=== PATIENT | female | born 1990 | race Caucasian/White ===

== ENCOUNTER → 2018-07-20 18:02 | Outpatient (CLI) | payer MEDICAID, SELFPAY ==
[2018-07-20 18:05] LABS: Microscopic, Urine URINE MICROSCOPIC (MICROSCOPIC)
[2018-07-21 08:34] LABS: Appearance,Urine CLOUDY (Clear); Blood, Urine 2+ (Negative); Color,Urine RED (Yellow); Glucose,Urine (UA) 1+ (Negative); Ketones,Urine TRACE (Negative); Leukocyte Esterase,Urine 3+ (Negative); Nitrate,Urine POSITIVE (Negative); PH,Urine 6.5 (5.0-8.5); Protein,Urine 3+ (Negative); Urobilinogen,Urine >=8.0 EU/dl (0.2)
[2018-07-21 08:37] LABS: Bilirubin,Urine Negative (Negative)
[2018-07-21 08:59] LABS: Bacteria,Urine 1+ /lpf; Calcium Oxalate Crystals,Urine 2+ /lpf; Squamous Epithelial Cell,Urine Occasional #/hpf (0-5)
== END ==
PROVIDERS: Visit Provider Nurse Practitioner Family
DX: R30.0 Dysuria (principal)
CPT/HCPCS: 81001; 87086; 87088; 87186

== ENCOUNTER → 2021-10-02 07:23 | Outpatient (CLI) | payer SELFPAY | PROVIDERS: PCP Physician Assistant; Visit Provider Physician Assistant | DX: N39.0 Urinary tract infection, site not specified (principal) | CPT/HCPCS: 87086 ==

== ENCOUNTER → 2022-05-14 21:29 | Outpatient (CLI) | payer OTHER, SELFPAY | LOC: LAB 05-17 01:18 → LAB.DROPOF 05-22 08:17 | PROVIDERS: PCP Student in an Organized Health Care Education/Training Program; Visit Provider Student in an Organized Health Care Education/Training Program | DX: R68.89 Other general symptoms and signs (principal); J02.9 Acute pharyngitis, unspecified; R11.0 Nausea | CPT/HCPCS: 87070; C9803; U0003; U0005 ==

== ENCOUNTER → 2022-07-18 10:39 | Outpatient (CLI) | payer OTHER, SELFPAY ==
[2022-07-18 16:04] LABS: Basophils % 0.6 % (0.1-2.0); Eosinophils # 0.3 K/mm3 (0.0-0.4); Eosinophils % 4.8 % (0.1-12.0); Hematocrit 47.9 % (37.0-47.0); Lymphocytes # 2.1 K/mm3 (0.7-4.5); Lymphocytes % 33.2 % (10-50); Mean Corpuscular HGB Conc 31.3 g/dL (31.8-35.4); Mean Corpuscular Hemoglobin 29.9 pg (27.0-31.2); Mean Corpuscular Volume 95.6 fl (81-99); Mean Platelet Volume 8.6 fl (7.4-10.4); Monocytes # 0.5 K/mm3 (0.1-1.0); Monocytes % 8.4 % (1.7-9.3); Neutrophils # 3.4 K/mm3 (1.8-7.8); Neutrophils % 52.9 % (37.0-80.0); Platelet Count 327 K/mm3 (142-424); Red Blood Count 5.01 M/mm3 (4.20-5.40); Red Cell Distribution Width 13.1 % (11.5-17.5); White Blood Count 6.4 K/mm3 (4.8-10.8)
[2022-07-18 16:19] LABS: Alanine Aminotransferase 18 U/L (12-78); Albumin Level 4.6 g/dl (3.5-5.0); Albumin/Globulin Ratio 1.6 (1.1-1.8); Alkaline Phosphatase 101 U/L (38-126); Anion Gap 10.2 mEq/L (5-15); Aspartate Amino Transferase 18 U/L (14-36); Bilirubin,Total 0.5 mg/dl (0.2-1.3); Blood Urea Nitrogen 13 mg/dl (7-17); Calcium 9.2 mg/dl (8.4-10.2); Carbon Dioxide 27 mmol/L (22.0-30.0); Chloride 103 mmol/L (98-107); Chol/HDL Ratio 4.5 (1-3.5); Cholesterol 177 mg/dl (140-200); Estimated Glomerular Filt Rate 117 ml/min (>60); GFR (African American) 141 ML/MIN (>60); Globulin 2.8 g/dL (1.3-3.2); Glucose 80 mg/dl (74-100); HDL Cholesterol 39 mg/dl (40-60); Potassium 4.2 mmoL/L (3.5-5.1); Sodium 136 mmol/L (136-145); Total Protein,Serum 7.4 g/dl (6.3-8.2); Triglycerides 84 mg/dl (30-150); VLDL Cholesterol 17 mg/dL (0-40)
[2022-07-18 16:31] LABS: Direct LDL Cholesterol 127.98 mg/dL (100-129)
[2022-07-18 16:38] LABS: 25-OH Vitamin D, Total 39.5 ng/mL (30-100)
[2022-07-18 16:52] LABS: Thyroid Stimulating Hormone 0.16 uIU/mL (0.465-4.68)
[2022-07-18 17:31] LABS: Total Iron Binding Capacity 315 ug/dL (265-497)
[2022-07-18 17:35] LABS: Vitamin B12 608 pg/mL (239-931)
[2022-07-18 17:58] LABS: Ferritin 55.1 ng/ml (6.24-137)
[2022-07-18 20:02] LABS: Iron 102 ug/dL (37-170)
[2022-07-22 11:55] LABS: Magnesium 1.9 mg/dl (1.6-2.3)
== END ==
PROVIDERS: PCP Physician Assistant; Visit Provider Physician Assistant
DX: G43.909 Migraine, unspecified, not intractable, without status migrainosus (principal); R53.83 Other fatigue
CPT/HCPCS: 80053; 80061; 82306; 82607; 82728; 83540; 83550; 83735; 84443; 85025

== ENCOUNTER 2023-07-17 06:57 | Outpatient (CLI) | payer OTHER, SELFPAY | END 2023-07-17 23:59 | LOC: LAB.DROPOF 07-22 06:57 | PROVIDERS: PCP Physician Assistant; Visit Provider Physician Assistant | DX: R39.15 Urgency of urination (principal); B96.89 Other specified bacterial agents as the cause of diseases classified elsewhere | CPT/HCPCS: 87086 ==

== ENCOUNTER 2023-07-25 07:06 | Outpatient (CLI) | payer OTHER, SELFPAY ==
--- NOTE | 2023-07-25 07:17 | CT_ITS ---
FINAL REPORT TECHNIQUE: Axial images through the abdomen and pelvis were performed without contrast. This study was performed with techniques to keep radiation doses as low as reasonably achievable, (ALARA). Individualized dose reduction techniques using automated exposure control or adjustment of mA and/or kV according to the patient's size were employed. CLINICAL HISTORY: left flank pain COMPARISON: None FINDINGS: Abdomen: The lung bases are clear. The liver parenchyma is homogeneous. The gallbladder is present. The spleen, pancreas, and adrenals are unremarkable. There are punctate increased densities in the collecting systems bilaterally that are consistent in appearance with nonobstructing tiny renal stones. Pelvis: The urinary bladder is incompletely distended, without stones. The appendix is absent. There is no pelvic mass or inflammation. The uterus is retroverted. IMPRESSION: No acute abnormality. Reviewed, Interpreted and Dictated by Mele Wall MD Transcribed by Sanam Vora Authenticated and [facility]
== END 2023-07-25 23:59 ==
LOC: RAD 07:07
PROVIDERS: PCP Physician Assistant; Visit Provider Physician Assistant
DX: R10.9 Unspecified abdominal pain (principal); R31.9 Hematuria, unspecified
CPT/HCPCS: 74176